=== PATIENT | male | born 1950 | race Caucasian/White ===

== ENCOUNTER 2018-03-15 20:57 | Emergency (ER) | payer SELFPAY ==
[2018-03-15 21:19] VITALS: RESP 18; TEMP 98.9
[2018-03-15] MEDS ORDERED: Lidocaine 5% Patch TD STA (23:33)
[2018-03-15] MEDS ORDERED: Lidocaine 5% Patch TD ONE (23:36)
[2018-03-15 23:50] VITALS: BP 140/69; PULSE 61; O2SAT 97
--- NOTE | 2018-03-16 23:05 | ED PDOC ---
Upper Extremity Pain/Injury Time Seen by Provider: 03/15/18 22:02 Chief Complaint (Nursing): Upper Extremity Problem/Injury Additional Complaint(s): 67 y/o male no PMH presents to ED c/o bilateral neck pain x 1 day. This morning at 3qam, pt awoke with bilateral SCM pain, made worse by turning the head. Pt took 1 oxycodone 1 hour ago without relief. Pt works in construction. 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 Past Medical History Reviewed: Historical Data, Nursing Documentation, Vital Signs Vital Signs: Last Vital Signs Temp 98.9 F 03/15/18 21:16 Pulse 61 03/15/18 23:49 Resp 18 03/15/18 23:49 BP 140/69 03/15/18 23:49 Pulse Ox 97 03/15/18 23:49 - Family History Family History: States: No Known Family Hx - Home Medications Home Medications: Ambulatory Orders Medication Instructions Recorded Cyclobenzaprine [Flexeril] 10 mg PO Q8H PRN #12 tab 03/15/18 Lidocaine 5% [Lidoderm] 1 ea TD DAILY PRN #10 patch 03/15/18 - Allergies Allergies/Adverse Reactions: Allergies Allergy/AdvReac Type Severity Reaction Status Date / Time Penicillins Allergy URTICARIA Verified 03/15/18 22:03 Review of Systems Constitutional: Negative for: Fever, Chills Eyes: Negative for: Vision Change ENT: Negative for: Ear Pain, Nose Pain, Mouth Pain, Throat Pain Cardiovascular: Negative for: Chest Pain, Palpitations Respiratory: Negative for: Cough, Shortness of Breath Gastrointestinal: Negative for: Nausea, Vomiting, Abdominal Pain Genitourinary Male: Negative for: Dysuria, Frequency, Incontinence Musculoskeletal: Positive for: Neck Pain (bilateral SCM). Negative for: Shoulder Pain, Arm Pain, Back Pain Skin: Negative for: Rash Neurological: Negative for: Weakness, Numbness, Confusion, Headache, Dizziness Physical Exam - Reviewed Nursing Documentation Reviewed: Yes Vital Signs Reviewed: Yes - Physical Exam Appears: Positive for: Well, Non-toxic, No Acute Distress, Uncomfortable Head Exam: Positive for: ATRAUMATIC, NORMAL INSPECTION, NORMOCEPHALIC Skin: Positive for: Normal Color, Warm, DRY Eye Exam: Positive for: EOMI, Normal appearance, PERRL ENT: Positive for: Normal ENT Inspection, Pharynx Is (normal), TM Is/Are (normal) Neck: Positive for: Limited ROM (secondary to pain), Pain On Movement Of Neck Cardiovascular/Chest: Positive for: Regular Rate, Rhythm Respiratory: Positive for: CNT, Normal Breath Sounds Pulses-Radial (L): 2+ Pulses-Radial (R): 2+ Gastrointestinal/Abdominal: Positive for: Normal Exam, Soft Back: Positive for: Normal Inspection, Muscle Spasm (bilateral SCM), Other (tenderness over bilateral SCM). Negative for: Vertebral Tenderness Extremity: Positive for: Normal ROM Lymphatic: Positive for: Normal Exam. Negative for: Adenopathy Neurologic/Psych: Positive for: Alert, department supervisor II-XII (intact), Oriented, Gait (normal). Negative for: Motor/Sensory Deficits - ECG O2 Sat by Pulse Oximetry: 97 Medical Decision Making Medical Decision Makin67 y/o male no PMH presents to ED c/o bilateral neck pain x 1 day. This morning at 3qam, pt awoke with bilateral SCM pain, made worse by turning the head. Pt took 1 oxycodone 1 hour ago without relief. Pt works in construction. 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 Exam: Normal HEENT, cardiac, pulmonary, neuro exams. Neck - tenderness over bilateral SCM, decreased ROM of cervical spine secondary to pain. initial plan: --toradol --flexeril pt still with pain, will give lidoderm patch BP continues to lower as pain improves 23:45 pt reports decreased pain, will discharge home. BP returned to normal. Impression: muscle spasm, torticollis Plan: Use lidoderm patch 12h/day and the remove for 12h flexeril every 8 hours as needed Take ibuprofen as needed for pain Followup with primary doctor within 2 days for BP check Followup with ENT if symptoms persist Return to ED if symptoms persist or worsen Disposition - Clinical Impression Clinical Impression: Muscle spasm - Patient ED Disposition Is Patient to be Admitted: No - Disposition Referrals: [facility] [Outside] Joo Varela MD [Staff Provider] - Disposition: Routine/Home Disposition Time: 23:50 Condition: IMPROVED Additional Instructions: Use lidoderm patch 12h/day and the remove for 12h Take ibuprofen as needed for pain flexeril every 8 hours as needed Followup with primary doctor within 2 days for BP check Followup with ENT if symptoms persist Return to ED if symptoms persist or worsen Prescriptions: Cyclobenzaprine [Flexeril] 10 mg PO Q8H PRN #12 tab PRN Reason: Muscle Spasm Lidocaine 5% [Lidoderm] 1 ea TD DAILY PRN #10 patch PRN Reason: Pain, Severe (8-10) Instructions: Muscle Spasms (DC) Forms: [facility] ([place]), [facility] ED School/Work Excuse
== END 2018-03-15 23:58 | disposition home or self-care (01) ==
LOC: H.ER 20:57
DX: M62.830 Muscle spasm of back (principal); Z88.0 Allergy status to penicillin
CPT/HCPCS: 96372; 99284; J1885